=== PATIENT | female | born 1995 | race Caucasian/White ===

== ENCOUNTER 2018-11-26 00:15 | Emergency (ER) | payer SELFPAY ==
[~2018-11-26] VITALS: Ht 172.7 cm; Wt 56.7 kg
--- NOTE | 2018-11-26 00:35 | NUR ---
Patient ambulated with stable gait. Speech is clear, speaks in complete sentences. No neuro deficits noted. Patient came for c/o cough, chest wall pain, and mucus x 6-7 months. No GI/ distress noted. Patient in bed at lowest position, sr upx2, call light within reach. Fall precautions implemented per protocol.
[2018-11-26] MEDS ORDERED: IPRATROPIUM BROMIDE 0.5 MG/2.5 ML NEBU NEB ONE (01:00)
[2018-11-26] MEDS ORDERED: ALBUTEROL SULFATE 2.5 MG/3 ML NEBU NEB ONE (01:00)
[2018-11-26] MEDS ORDERED: methylPREDNISolone SOD SUCC 125 MG/2 ML VIAL IV ONE (01:00)
[2018-11-26] MEDS ORDERED: methylPREDNISolone SOD SUCC 125 MG/2 ML VIAL ONE (01:04)
[2018-11-26] MEDS ORDERED: ALBUTEROL SULFATE 2.5 MG/3 ML NEBU ONE (01:07)
[2018-11-26] MEDS ORDERED: ALBUTEROL SULFATE 2.5 MG/ 0.5 ML NEBU ONE ×2 (01:08→01:10)
[2018-11-26] MEDS ORDERED: IPRATROPIUM BROMIDE 0.5 MG/2.5 ML NEBU ONE (01:08)
--- NOTE | 2018-11-26 01:34 | NUR ---
Patient refusing to complete breathing txNATALIYA notified.
--- NOTE | 2018-11-26 02:52 | NUR ---
Spoke to ELOINA for update on XRAY, rep stated she will contact radiologist to have it read.
--- NOTE | 2018-11-26 03:14 | NUR ---
Patient discharged to home in stable conditon. Written and verbal after care instructions given. Patient verbalizes understanding of instructions. Patient ambulated with stable gait. IV removed.
[2018-11-26 04:20] VITALS: BP 105/62
== END 2018-11-26 03:14 | disposition home or self-care (01) ==
LOC: ER 00:20
DX: J45.909 Unspecified asthma, uncomplicated (principal); F17.200 Nicotine dependence, unspecified, uncomplicated
CPT/HCPCS: 71045; 93005; 94644; 96374; 99285; J2930; A4663; J3590